=== PATIENT | female | born 1990 ===

== ENCOUNTER 2020-02-24 01:46 | Emergency (ER) | payer MEDICAID, OTHER ==
[~2020-02-24] VITALS: Ht 170.2 cm; Wt 140.8 kg
[2020-02-24 02:00] VITALS: BP 124/68
--- NOTE | 2020-02-24 02:00 | NUR ---
PT AMBUALTED TO BED 7 WITH STEADY GAIT.
--- NOTE | 2020-02-24 02:08 | NUR ---
ERMD AT BEDSIDE.
--- NOTE | 2020-02-24 02:20 | NUR ---
29 Y/O FEMALE PRESENTS TO ER WITH C/O HEAVY VAGINAL BLEEDING X 1 HR. 0/10 PAIN. PT STATES SHE IS 8 WEEKS . PT WAS LAYING IN BED, WHEN SHE FELT A "GUSH" FROM HER VAGINA. UPON GOING TO THE RESTROOM PT STATED SHE BEGAN BLEEDING HEAVY, WITH TISSUE PASSING WELL. SHE STATED SHE HAS GONE THROUGH 3 MENSTRUAL PADS WITHIN THE HOUR. DENIES N/V/D, FEVER, HEADACHE, DYSURIA, BACK PAIN, SOB, COUGH, TRAUMA/INJURY. LMP 01/04/20. A&OX4, VSS, R/R EQUAL, AND UNLABORED. SIDE RAIL X1, BED IN LOW POSITION, WILL CONTINUE TO MONITOR. NKDA DENIES PMH
[2020-02-24 02:42] LABS: BASOPHILS % (AUTO) 0.4 % (0.0-2.0); EOSINOPHILS # (AUTO) 0.3 K/uL (0-0.4); EOSINOPHILS % (AUTO) 2.7 % (0.0-4.0); HEMATOCRIT 36.5 % (36-48); LYMPHOCYTES # (AUTO) 2.6 K/uL (2.5-16.5); LYMPHOCYTES % (AUTO) 26.4 % (20.5-51.1); MEAN CORPUSCULAR HEMOGLOBIN 28 pg (27-31); MEAN CORPUSCULAR HGB CONC 33 g/dL (33-37); MEAN CORPUSCULAR VOLUME 85.7 fL (80-94); MONOCYTES # (AUTO) 0.6 K/uL (0.8-1.0); MONOCYTES % (AUTO) 6.2 % (1.7-9.3); NEUTROPHILS # (AUTO) 6.3 K/uL (1.8-7.7); NEUTROPHILS % (AUTO) 64.3 % (42.2-75.2); PLATELET COUNT (AUTO) 347 K/uL (140-450); RED BLOOD CELL COUNT(AUTO) 4.26 MIL/uL (4.20-5.40); RED CELL DISTRIBUTION WIDTH 14.8 % (11.6-13.7); WHITE BLOOD COUNT (AUTO) 9.7 K/uL (4.8-10.8)
[2020-02-24 02:57] LABS: ALBUMIN 3.8 g/dL (3.4-5.0); ANION GAP 15.8 (8-16); CARBON DIOXIDE 22.8 mmol/L (21-32); CREATININE 0.6 mg/dL (0.6-1.3); POTASSIUM 3.6 mmol/L (3.5-5.1); TOTAL BILIRUBIN 0.4 mg/dL (0.0-1.0)
--- NOTE | 2020-02-24 03:11 | NUR ---
ULTRASOUND AT BEDSIDE
[2020-02-24 04:32] VITALS: BP 124/68
[2020-02-24 05:44] LABS: APPEARANCE,URINE BLOODY (CLEAR); BILIRUBIN,URINE NEGATIVE (NEGATIVE); BLOOD, URINE 3+ (NEGATIVE); COLOR,URINE RED (YELLOW); LEUKOCYTE ESTERASE ,URINE TRACE (NEGATIVE); NITRITE, URINE POSITIVE (NEGATIVE); UGLUCOSE NEGATIVE (NEGATIVE)
[2020-02-24 06:25] LABS: WBC,URINE 0-5 /HPF (0-5)
[2020-02-24 06:26] LABS: RBC,URINE TOO NUMEROUS TO COUN /HPF (0-5)
== END 2020-02-24 04:32 | disposition home or self-care (01) ==
LOC: MED 01:46
DX: O20.0 Threatened abortion (principal); O23.41 Unspecified infection of urinary tract in pregnancy, first trimester; Z3A.08 8 weeks gestation of pregnancy
CPT/HCPCS: 36415; 76801; 80053; 81001; 81025; 84702; 85025; 99284; Q0092